=== PATIENT | male | born 1990 | race African-American/Black ===

== ENCOUNTER 2018-11-11 20:48 | Emergency (ER) | payer SELFPAY ==
[~2018-11-11] VITALS: Ht 177.8 cm; Wt 111.4 kg
[2018-11-11] MEDS ORDERED: IV RINGERS SOLUTION,LACTATED 1,000 ML IV SCH (20:54)
--- NOTE | 2018-11-11 20:54 | ED.ADGEN ---
Past History Past Medical History: Asthma Adult General Chief Complaint Chief Complaint ".. I ve been getting sick since Sunday... I thought it was allergies... and got worse Sunday.. and coughing hard on Sunday.. I just got runny nose, congestion.. this cough.. and now coughing so much I puke.. 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 Pt. also complaints of head ache for coughing bouts. Patient denies any travel or specific ill contacts. No history immunosuppression or HIV. Patient is exposed to a lot of dust where he works in [employer]. Patient normally healthy. Does have history of prior allergies. Has been trying to use [id number] Mucinex and Tylenol. Pt. does smoke. Review of Systems Review of Systems Constitutional: -subjective fever or chills [] Eyes: Denies change in visual acuity, redness, or eye pain [] HENT: Denies nasal congestion or sore throat [] Respiratory: Hxs cough and wheezing Cardiovascular: No additional information not addressed in HPI [] GI: Epigastric abdominal pain, nausea, vomiting. Denies bloody stools or diarrhea [] : Denies dysuria or hematuria [] Musculoskeletal: Denies back pain or joint pain [] Integument: Denies rash or skin lesions [] Neurologic: Cough headache. Denies focal weakness or sensory changes [] Endocrine: Denies polyuria or polydipsia [] All other systems were reviewed and found to be within normal limits, except as documented in this note. Family History Family History Non-contributor Current Medications Current Medications Current Medications Medications (Trade) Dose Ordered Sig/Veronica Start Time Stop Time Status Last Admin Dose Admin Albuterol Sulfate (Ventolin Hfa Inhaler) 2 puff 1X ONCE 11/11/18 21:45 11/11/18 21:46 DC 11/11/18 22:15 2 PUFF Azithromycin (Zithromax) 500 mg 1X ONCE 11/11/18 21:45 11/11/18 21:46 DC 11/11/18 21:54 500 MG Famotidine (Pepcid Vial) 20 mg 1X ONCE 11/11/18 21:00 11/11/18 21:11 DC 11/11/18 21:30 20 MG Ketorolac Tromethamine (Toradol 30mg Vial) 30 mg STK-MED ONCE 11/11/18 21:12 11/11/18 21:12 DC Lactated Ringer's 1,000 ml @ 1,000 mls/hr Q1H 11/11/18 20:54 11/11/18 21:53 DC 11/11/18 21:30 1,000 MLS/HR Methylprednisolone Sodium Succinate (SOLU-Medrol 125MG VIAL) 125 mg 1X ONCE 11/11/18 21:45 11/11/18 21:46 DC 11/11/18 21:54 125 MG Ondansetron HCl (Zofran) 8 mg 1X ONCE 11/11/18 21:00 11/11/18 21:11 DC 11/11/18 21:30 8 MG Allergies Allergies Allergies Coded Allergies Type Severity Reaction Last Updated Verified No Known Drug Allergies 11/11/18 No Physical Exam Physical Exam Constitutional: Well developed, well nourished, Moderate acute distress, non- toxic appearance. [] HENT: Normocephalic, atraumatic, bilateral external ears normal, oropharynx moist, no oral exudates, nose swollen turbinates and rhinorrhea. Eyes: PERRLA, EOMI, conjunctiva mild injection, no discharge. [] Glasses Neck: Normal range of motion, no tenderness, supple, no stridor. [] Cardiovascular: Tachycardia Heart rate regular rhythm, no murmur [] Lungs & Thorax: Bilateral breath sounds equal with scattered wheezes on auscultation [] Abdomen: Bowel sounds normal, soft, epigastric tenderness, no masses, no pulsatile masses. [] Skin: Warm, dry, no erythema, no rash. [] Back: No tenderness, no CVA tenderness. [] Extremities: No tenderness, no cyanosis, no clubbing, ROM intact, no edema. [] Neurologic: Alert and oriented X 3, normal motor function, normal sensory function, no focal deficits noted. [] Psychologic: Affect anxious, judgement normal, mood normal. [] Current Patient Data Vital Signs Vital Signs Date Time Temp Pulse Resp B/P (MAP) Pulse Ox O2 Delivery O2 Flow Rate FiO2 11/12/18 00:40 66 18 151/103 (119) 96 Room Air 11/11/18 20:58 98.4 Lab Results Laboratory Tests Test 11/11/18 21:04 11/11/18 21:05 Urine Collection Type Unknown Urine Color Kim Urine Clarity Clear Urine pH 5.5 Urine Specific [place] 1.025 Urine Protein 100 mg/dl (NEG-TRACE) Urine Glucose (UA) Neg mg/dL (NEG) Urine Ketones (Stick) 15 mg/dL (NEG) Urine Blood Neg (NEG) Urine Nitrite Neg (NEG) Urine Bilirubin Neg (NEG) Urine Urobilinogen Dipstick 2 mg/dL (0.2 mg/dL) Urine Leukocyte Esterase Neg (NEG) Urine RBC 0 /HPF (0-2) Urine WBC Occ /HPF (0-4) Urine Squamous Epithelial Cells Occ /LPF Urine Bacteria 0 /HPF (0-FEW) Urine Mucus Slight /LPF Sodium Level 138 mmol/L (136-145) Potassium Level 3.5 mmol/L (3.5-5.1) Chloride Level 102 mmol/L (98-107) Carbon Dioxide Level 27 mmol/L (21-32) Anion Gap 9 (6-14) Blood Urea Nitrogen 18 mg/dL (8-26) Creatinine 1.5 mg/dL (0.7-1.3) H Estimated GFR (Cockcroft-Gault) 55.7 Glucose Level 118 mg/dL (70-99) H Calcium Level 9.2 mg/dL (8.5-10.1) Total Bilirubin 0.7 mg/dL (0.2-1.0) Direct Bilirubin 0.2 mg/dL (0.0-0.2) Aspartate Amino Transferase (AST) 28 U/L (15-37) Alanine Aminotransferase (ALT) 18 U/L (16-63) Alkaline Phosphatase 65 U/L (46-116) Troponin I Quantitative < 0.017 ng/mL (0-0.055) Total Protein 8.0 g/dL (6.4-8.2) Albumin 3.9 g/dL (3.4-5.0) Amylase Level 88 U/L (25-115) Lipase 172 U/L (73-393) Urine Opiates Screen Neg (NEG) Urine Methadone Screen Neg (NEG) Urine Barbiturates Neg (NEG) Urine Phencyclidine Screen Neg (NEG) Urine Amphetamine/Methamphetamine Neg (NEG) Urine Benzodiazepines Screen Neg (NEG) Urine Cocaine Screen Neg (NEG) Urine Cannabinoids Screen Neg (NEG) Urine Ethyl Alcohol Neg (NEG) White Blood Count 9.2 x10^3/uL (4.0-11.0) Red Blood Count 4.82 x10^6/uL (4.30-5.70) Hemoglobin 14.5 g/dL (13.0-17.5) Hematocrit 44.0 % (39.0-53.0) Mean Corpuscular Volume 91 fL (79-100) Mean Corpuscular Hemoglobin 30 pg (25-35) Mean Corpuscular Hemoglobin Concent 33 g/dL (31-37) Red Cell Distribution Width 13.3 % (11.5-14.5) Platelet Count 207 x10^3/uL (140-400) Neutrophils (%) (Auto) 49 % (31-73) Lymphocytes (%) (Auto) 33 % (24-48) Monocytes (%) (Auto) 10 % (0-9) H Eosinophils (%) (Auto) 7 % (0-3) H Basophils (%) (Auto) 1 % (0-3) Neutrophils # (Auto) 4.5 x10^3uL (1.8-7.7) Lymphocytes # (Auto) 3.1 x10^3/uL (1.0-4.8) Monocytes # (Auto) 0.9 x10^3/uL (0.0-1.1) Eosinophils # (Auto) 0.7 x10^3/uL (0.0-0.7) Basophils # (Auto) 0.1 x10^3/uL (0.0-0.2) Prothrombin Time 10.4 SEC (9.4-11.4) Prothrombin Time INR 1.0 (0.9-1.1) Activated Partial Thromboplast Time 27 SEC (23-33) EKG EKG [] Radiology/Procedures Radiology/Procedures [address] [address] IMAGING REPORT Signed PATIENT: ELIZABETH DRAKE ACCOUNT: [id number] : 1990 LOCATION: ER AGE: 28 SEX: M EXAM STATUS: REG ER ORD. PHYSICIAN: LEVI ROMAN MD REASON: pain, n/v PROCEDURE: ACUTE ABDOMEN SERIES Acute abdominal series to include a PA chest radiograph 11/11/2018 Clinical History: Abdominal pain with nausea and vomiting A PA digital radiograph of the chest was obtained. Two supine and two erect AP digital radiographs of the abdomen/pelvis were obtained. No previous studies are available for comparison. The cardiac and mediastinal silhouettes are within normal limits in size and configuration. No pulmonary infiltrate is seen. No pleural effusion or pneumothorax is noted. The abdominal bowel gas pattern is nonobstructive. A moderate amount of stool is seen throughout the colon. There is no evidence of free air. No radiopaque calculus is seen. Calcifications are seen within the pelvis consistent with phleboliths. The osseous structures are grossly intact. Impression: Nonobstructive bowel gas pattern. Electronically signed by: Jason Andrade MD (11/11/2018 11:26 PM) [facility] DICTATED AND SIGNED BY: JASON ANDRADE MD DATE: 11/11/18 2322 CC: LEVI ROMAN MD; PCP,NO ~ ][place] [address] IMAGING REPORT Signed PATIENT: ELIZABETH DRAKE ACCOUNT: [id number] : 1990 LOCATION: ER AGE: 28 SEX: M EXAM STATUS: REG ER ORD. PHYSICIAN: LEVI ROMAN MD REASON: cough, LATERAL ONLY, AP WAS INCLUDED ON THE ACUTE ABD SERIES. PROCEDURE: PORTABLE CHEST 1V Lateral radiograph of the chest 11/11/2018 CLINICAL HISTORY: Chest pain and nausea and vomiting. A lateral digital radiograph of the chest was obtained. Comparison is made to the PA radiograph of the chest obtained earlier as part of the patient's acute abdominal series. The cardiac silhouette is normal in size. The mediastinal silhouette is within normal limits. No pulmonary infiltrate is seen. No pleural effusion or pneumothorax is noted. The osseous structures are grossly intact. IMPRESSION: Normal lateral radiograph of the chest. Electronically signed by: Jason Andrade MD (11/11/2018 11:30 PM) [facility] DICTATED AND SIGNED BY: JASON ANDRADE MD DATE: 11/11/18 5705 CC: LEVI ROMAN MD; PCP,NO ~ Course & Med Decision Making Course & Med Decision Making Pertinent Labs and Imaging studies reviewed. 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 The patient stop smoking. Patient uses MDI 2 puffs 4 times a day. Patient take Zithromax 250 a day. Patient take prednisone 50 mg a day. Patient follow-up primary care. Patient return if any concerns. [] Final Impression Final Impression 1. Upper respiratory infection 2. Bronchitis 3. Abdomen Pain 4. Tobacco use[] Dragon Disclaimer Dragon Disclaimer This electronic medical record was generated, in whole or in part, using a voice recognition dictation system. Dragon Disclaimer This chart was dictated in whole or in part using Voice Recognition software in a busy, high-work load, and often noisy Emergency Department environment. It may contain unintended and wholly unrecognized errors or omissions. LEVI ROMAN MD Nov 11, 2018 20:54
[2018-11-11] MEDS ORDERED: ONDANSETRON PF 4 MG/2 ML VIAL. IV ONE (21:00)
[2018-11-11] MEDS ORDERED: KETOROLAC 30 MG/ML VIAL. IV ONE (21:00)
[2018-11-11] MEDS ORDERED: FAMOTIDINE 20 MG/2 ML VIAL IVP ONE (21:00)
[2018-11-11] MEDS ORDERED: KETOROLAC 30 MG/ML VIAL. ONE (21:12)
[2018-11-11 21:19] LABS: BASO # 0.1 x10^3/uL (0.0-0.2); BASO % 1 % (0-3); EOS # 0.7 x10^3/uL (0.0-0.7); EOS % 7 % (0-3); HEMOGLOBIN 14.5 g/dL (13.0-17.5); LYMPH # 3.1 x10^3/uL (1.0-4.8); LYMPH % 33 % (24-48); MEAN CORPUSCULAR HEMOGLOBIN 30 pg (25-35); MEAN CORPUSCULAR HGB CONC 33 g/dL (31-37); MEAN CORPUSCULAR VOLUME 91 fL (79-100); MONO # 0.9 x10^3/uL (0.0-1.1); MONO % 10 % (0-9); NEUT # 4.5 x10^3uL (1.8-7.7); NEUT % 49 % (31-73); PLATELET COUNT 207 x10^3/uL (140-400); RED BLOOD COUNT 4.82 x10^6/uL (4.30-5.70); RED CELL DISTRIBUTION WIDTH 13.3 % (11.5-14.5); WHITE BLOOD COUNT 9.2 x10^3/uL (4.0-11.0)
[2018-11-11 21:35] LABS: ALBUMIN 3.9 g/dL (3.4-5.0); CALCIUM 9.2 mg/dL (8.5-10.1); CREATININE 1.5 mg/dL (0.7-1.3); DIRECT BILIRUBIN 0.2 mg/dL (0.0-0.2); GFR 55.7; POTASSIUM 3.5 mmol/L (3.5-5.1); TOTAL BILIRUBIN 0.7 mg/dL (0.2-1.0)
[2018-11-11 21:36] LABS: BARBITURATES NEG (NEG); BENZODIAZEPINES NEG (NEG); CANNABINOIDS NEG (NEG); COCAINE NEG (NEG); METHADONE NEG (NEG); OPIATES NEG (NEG); PHENCYCLIDINE NEG (NEG)
[2018-11-11 21:39] LABS: AMPHETAMINE/METHAMPHETAMINE NEG (NEG)
[2018-11-11] MEDS ORDERED: AZITHROMYCIN 250 MG TABLET. PO ONE (21:45)
[2018-11-11] MEDS ORDERED: ALBUTEROL SULFATE 8GM INHALER. INH ONE (21:45)
[2018-11-11] MEDS ORDERED: methylPREDNISolone SOD SUCC PF 125 MG/2 ML VIAL. IV ONE (21:45)
[2018-11-11 22:12] LABS: BACTERIA,URINE 0 /HPF (0-FEW); BILIRUBIN,URINE NEG (NEG); CLARITY,URINE CLEAR; COLOR,URINE AMBER; GLUCOSE,URINE NEG (NEG); NITRITE,URINE NEG (NEG); RBC,URINE 0 /HPF (0-2); SQUAMOUS EPITHELIAL CELL,UR OCC /LPF; UROBILINOGEN,URINE 2 mg/dL (0.2 mg/dL); WBC,URINE OCC /HPF (0-4)
--- NOTE | 2018-11-11 23:29 | RAD ---
Acute abdominal series to include a PA chest radiograph 11/11/2018 Clinical History: Abdominal pain with nausea and vomiting A PA digital radiograph of the chest was obtained. Two supine and two erect AP digital radiographs of the abdomen/pelvis were obtained. No previous studies are available for comparison. The cardiac and mediastinal silhouettes are within normal limits in size and configuration. No pulmonary infiltrate is seen. No pleural effusion or pneumothorax is noted. The abdominal bowel gas pattern is nonobstructive. A moderate amount of stool is seen throughout the colon. There is no evidence of free air. No radiopaque calculus is seen. Calcifications are seen within the pelvis consistent with phleboliths. The osseous structures are grossly intact. Impression: Nonobstructive bowel gas pattern. Electronically signed by: Jason Pnia MD (11/11/2018 11:26 PM) [facility]
--- NOTE | 2018-11-11 23:33 | RAD ---
Lateral radiograph of the chest 11/11/2018 CLINICAL HISTORY: Chest pain and nausea and vomiting. A lateral digital radiograph of the chest was obtained. Comparison is made to the PA radiograph of the chest obtained earlier as part of the patient's acute abdominal series. The cardiac silhouette is normal in size. The mediastinal silhouette is within normal limits. No pulmonary infiltrate is seen. No pleural effusion or pneumothorax is noted. The osseous structures are grossly intact. IMPRESSION: Normal lateral radiograph of the chest. Electronically signed by: Jason Pina MD (11/11/2018 11:30 PM) [facility]
[2018-11-12] MEDS ORDERED: HYDR-1179 PO (00:01)
[2018-11-12] MEDS ORDERED: PRED50TA PO (00:01)
[2018-11-12] MEDS ORDERED: AZIT250T6 PO (00:01)
[2018-11-12 00:40] VITALS: BP 151/103
== END 2018-11-12 00:40 | disposition home or self-care (01) ==
LOC: ER 20:48
DX: J06.9 Acute upper respiratory infection, unspecified (principal); J45.909 Unspecified asthma, uncomplicated; R10.13 Epigastric pain; Z72.0 Tobacco use
CPT/HCPCS: 36415; 71045; 74022; 80048; 80076; 80307; 81001; 82150; 83690; 84484; 85025; 85610; 85730; 94640; 96374; 96375; 99285; J0456; J1885; J2405; J2930; J3490; J7120; J7613; 94664